=== PATIENT | male | born 1995 ===

== ENCOUNTER 2020-07-25 00:27 | Emergency (ER) | payer SELFPAY ==
[~2020-07-25] VITALS: Ht 180.3 cm; Wt 100.0 kg
--- NOTE | 2020-07-25 00:59 | NUR ---
PT CAME INTO ER FOR A RANKIN, COUGH AND BODY ACHES FOR THE LAST FEW DAYS. PT SITTING UP IN [place], SWABBED FOR COVID, DENIES ADDITIONAL QUESTIONS OR NEEDS A THIS TIME. TO BE DC'D.
[2020-07-25 01:00] VITALS: BP 120/82
== END 2020-07-25 01:14 | disposition home or self-care (01) ==
LOC: ED 00:57
DX: U07.1 COVID-19 (principal); J00 Acute nasopharyngitis [common cold]; J06.9 Acute upper respiratory infection, unspecified
CPT/HCPCS: 87635; 99283